=== PATIENT | female | born 1970 | race African-American/Black ===

== ENCOUNTER 2017-02-24 15:51 | Emergency (ER) | payer SELFPAY ==
[2017-02-24 15:54] VITALS: BP 134/87
[2017-02-24] MEDS ORDERED: FAMO-63 PO (16:09)
[2017-02-24] MEDS ORDERED: HYDR25TA PO (16:09)
[2017-02-24] MEDS ORDERED: PRED-220 PO (16:09)
--- NOTE | 2017-02-24 16:10 | PHYS DOC ---
Past Medical History Past Medical History: No Pertinent History Past Surgical History: , Hysterectomy, Other Additional Past Surgical Histo: HERNIA Alcohol Use: None Drug Use: None Adult General Chief Complaint Chief Complaint: SKIN RASH/ABSCESS [facility] HPI Patient is a 47 year old female presents emergency Department today with complaints of a rash around her neck and her right cheek that began approximately 2 days ago. Patient denies any changes to personal hygiene products or laundry detergents. She states she has not tried any new jewelry on. States that she has not had anything like this happen in the past. She denies any facial or airway swelling. She denies any difficulty breathing. Review of Systems Review of Systems Constitutional: Denies fever or chills [] Eyes: Denies change in visual acuity, redness, or eye pain [] HENT: Denies nasal congestion or sore throat [] Respiratory: Denies cough or shortness of breath [] Cardiovascular: No additional information not addressed in HPI [] GI: Denies abdominal pain, nausea, vomiting, bloody stools or diarrhea [] : Denies dysuria or hematuria [] Musculoskeletal: Denies back pain or joint pain [] Integument: Denies rash or skin lesions [] Neurologic: Denies headache, focal weakness or sensory changes [] Endocrine: Denies polyuria or polydipsia [] Allergies Allergies Allergies Coded Allergies Type Severity Reaction Last Updated Verified aspirin Allergy Severe anaphyllaxis 06/07/14 Yes Penicillins Allergy Intermediate 06/07/14 Yes Physical Exam Physical Exam Constitutional: Well developed, well nourished, no acute distress, non-toxic appearance. [] HENT: Normocephalic, atraumatic, bilateral external ears normal, oropharynx moist, no oral exudates, nose normal. There is no angioedema. Eyes: PERRLA, EOMI, conjunctiva normal, no discharge. [] Neck: Normal range of motion, no tenderness, supple, no stridor. [] Cardiovascular:Heart rate regular rhythm, no murmur [] Lungs & Thorax: Bilateral breath sounds clear to auscultation [] Abdomen: Bowel sounds normal, soft, no tenderness, no masses, no pulsatile masses. [] Skin: Patient has a near circumferential, raised rash to the base of her neck with a slight erythematous base. There are no vesicles or pustules. There is no evidence of Kebnerization. There is slight excoriation due to scratching. Patient has a similar small lesion to her right cheek. Back: No tenderness, no CVA tenderness. [] Extremities: No tenderness, no cyanosis, no clubbing, ROM intact, no edema. [] Neurologic: Alert and oriented X 3, normal motor function, normal sensory function, no focal deficits noted. [] Psychologic: Affect normal, judgement normal, mood normal. [] EKG EKG [] Radiology/Procedures Radiology/Procedures [] Course & Med Decision Making Course & Med Decision Making Pertinent Labs and Imaging studies reviewed. (See chart for details) [] Dragon Disclaimer Dragon Disclaimer This electronic medical record was generated, in whole or in part, using a voice recognition dictation system. Departure Departure Impression: Primary Impression: Contact dermatitis Disposition: HOME, SELF-CARE Condition: GOOD Referrals: NO PCP (PCP) Patient Instructions: Contact Dermatitis, [id number] Additional Instructions: 1. Review the discharge instructions provided for self-care and reasons to return the emergency department. 2. Take the medications as prescribed. 3. Follow-up with a primary care doctor's office within 5-7 days if there is no improvement. Scripts Hydroxyzine Hcl 25 Mg Tablet1 Tab PO TID itching #21 TAB Prov:JESSENIA CALIXTO 02/24/17 Famotidine (Pepcid)20 Mg [id number] Mg PO BID #14 TAB Prov:JESSENIA CALIXTO 02/24/17 Prednisone 10 Mg [id number] Mg PO UD PREDNISONE TAPER #39 TAB Ref 0 Take 3 tablets by mouth twice a day for 3 days, then take 2 tablets by mouth twice a day for 3 days, then take 1 tablet by mouth twice a day for 3 days, then take 1 tablet by mouth daily x 3 days, then stop. Prov:JESSENIA CALIXTO 02/24/17 JESSENIA CALIXTO Feb 24, 2017 16:10
== END 2017-02-24 16:16 | disposition home or self-care (01) ==
LOC: ER 15:51
DX: L25.9 Unspecified contact dermatitis, unspecified cause (principal); Z88.0 Allergy status to penicillin; Z88.6 Allergy status to analgesic agent
CPT/HCPCS: 99283

== ENCOUNTER 2017-05-25 17:01 | Emergency (ER) | payer SELFPAY ==
[~2017-05-25] VITALS: Ht 167.6 cm; Wt 108.9 kg
[~2017-05-25 17:01] MED LIST: FAMO-63 PO; HYDR25TA PO; PRED-220 PO
[2017-05-25 17:15] VITALS: BP 134/87
--- NOTE | 2017-05-25 17:25 | PHYS DOC ---
Past Medical History Past Medical History: No Pertinent History Past Surgical History: , Hysterectomy, Other Additional Past Surgical Histo: HERNIA Alcohol Use: None Drug Use: None Adult General Chief Complaint Chief Complaint: EARACHE/EAR PAIN [facility] HPI Patient is a 47 year old female presents emergency department stating that she' s had a 4 day history of right ear pain. She states that she had just recently taken a flight when she went to get off the plane she had a pop in the right ear. She states she's had pain since that time. She denies any drainage or discharge coming from the ear. She denies any fever, chills or any nausea or vomiting or any nasal congestion. Patient states that she has not taken anything for pain or discomfort. Review of Systems Review of Systems Constitutional: Denies fever or chills [] Eyes: Denies change in visual acuity, redness, or eye pain [] HENT: Denies nasal congestion or sore throat. Right ear pain Respiratory: Denies cough or shortness of breath [] Cardiovascular: No additional information not addressed in HPI [] GI: Denies abdominal pain, nausea, vomiting, bloody stools or diarrhea [] : Denies dysuria or hematuria [] Musculoskeletal: Denies back pain or joint pain [] Integument: Denies rash or skin lesions [] Neurologic: Denies headache, focal weakness or sensory changes [] Endocrine: Denies polyuria or polydipsia [] Allergies Allergies Allergies Coded Allergies Type Severity Reaction Last Updated Verified aspirin Allergy Severe anaphyllaxis 06/07/14 Yes Penicillins Allergy Intermediate 06/07/14 Yes Physical Exam Physical Exam Constitutional: Well developed, well nourished, no acute distress, non-toxic appearance. [] HENT: Normocephalic, atraumatic, bilateral external ears normal, oropharynx moist, no oral exudates, nose normal. Bilateral tympanic membranes appear to be no treatment done with no erythematous no drainage or discharge noted no dental pain or dental abscess noted. Eyes: PERRLA, EOMI, conjunctiva normal, no discharge. [] Neck: Normal range of motion, no tenderness, supple, no stridor. [] Cardiovascular:Heart rate regular rhythm, no murmur [] Lungs & Thorax: Bilateral breath sounds clear to auscultation [] Skin: Warm, dry, no erythema, no rash. [] Back: No tenderness Extremities: No tenderness, no cyanosis, no clubbing, ROM intact, no edema. [] Neurologic: Alert and oriented X 3, normal motor function, normal sensory function, no focal deficits noted. [] Psychologic: Affect normal, judgement normal, mood normal. [] EKG EKG [] Radiology/Procedures Radiology/Procedures [] Course & Med Decision Making Course & Med Decision Making Pertinent Labs and Imaging studies reviewed. (See chart for details) Patient was given Tylenol here in the emergency department as she has an allergy to aspirin. Patient will be discharged home with recommendations for Tylenol for pain and discomfort. Warm moist packs to the right ear recommended following up with ENT if she continues to pain and discomfort. Signs symptoms to return back to emergency department has been provided. [] Dragon Disclaimer Dragon Disclaimer This electronic medical record was generated, in whole or in part, using a voice recognition dictation system. Departure Departure Impression: Primary Impression: Otalgia, right ear Condition: STABLE Referrals: NO PCP (PCP) Patient Instructions: Otalgia-Brief Additional Instructions: Activity a tolerated Tylenol for pain and discomfort Warm moist pack to the right ear Followup with ENT if pain continues Return to emergency department as needed for signs and symptoms that become worse. MATTHEW CHURCH [employer] REPAIRER May 25, 2017 17:24
[2017-05-25] MEDS ORDERED: IBUPROFEN 800 MG TABLET. PO ONE (17:30)
[2017-05-25] MEDS ORDERED: ACETAMINOPHEN 325 MG TABLET. PO ONE (17:30)
== END 2017-05-25 17:32 | disposition home or self-care (01) ==
LOC: ER 17:04
DX: H92.01 Otalgia, right ear (principal); Z88.0 Allergy status to penicillin; Z88.6 Allergy status to analgesic agent
CPT/HCPCS: 99282

== ENCOUNTER 2017-08-04 09:07 | Emergency (ER) | payer SELFPAY ==
[~2017-08-04] VITALS: Ht 166.4 cm; Wt 108.9 kg
[2017-08-04 09:38] VITALS: BP 135/87
--- NOTE | 2017-08-04 10:51 | PHYS DOC ---
Past Medical History Past Medical History: No Pertinent History Past Surgical History: , Hysterectomy, Other Additional Past Surgical Histo: HERNIA Additional Information: 5-6 cigarettes daily Alcohol Use: None Drug Use: None Adult General Chief Complaint Chief Complaint: EARACHE/EAR PAIN [facility] HPI Patient is a 47 year old female presents to the emergency department stating that she's been having one and a half week long history of right ear pain and discomfort. She states that it is been sometimes sharp in nature. She states that within the last 3 days the pain is become severely worse when she is trying to sleep she states that she cannot get herself position chronically. She denies any upper respiratory congestion. She denies any drainage from her ear. She states that she does have a history of chills but denies fevers. Patient denies any shortness of air difficulty breathing. Patient states that she has not taken anything for the discomfort at home. Review of Systems Review of Systems Constitutional: Denies fever or chills [] Eyes: Denies change in visual acuity, redness, or eye pain [] HENT: Denies nasal congestion or sore throat. Complaint of right ear pain and discomfort. Respiratory: Denies cough or shortness of breath [] Cardiovascular: No additional information not addressed in HPI [] GI: Denies abdominal pain, nausea, vomiting, bloody stools or diarrhea [] : Denies dysuria or hematuria [] Musculoskeletal: Denies back pain or joint pain [] Integument: Denies rash or skin lesions [] Neurologic: Denies headache, focal weakness or sensory changes [] Endocrine: Denies polyuria or polydipsia [] Allergies Allergies Allergies Coded Allergies Type Severity Reaction Last Updated Verified aspirin Allergy Severe anaphyllaxis 06/07/14 Yes Penicillins Allergy Intermediate 06/07/14 Yes Physical Exam Physical Exam Constitutional: Well developed, well nourished, no acute distress, non-toxic appearance. [] HENT: Normocephalic, atraumatic, bilateral external ears normal, oropharynx moist, no oral exudates, nose normal. Bilateral tympanic membranes appear to be normal. Patient does have tenderness noted along the eustachian tube area. No redness no warmth noted. Throat appears to be without erythematous or exudate noted. Eyes: PERRLA, EOMI, conjunctiva normal, no discharge. [] Neck: Normal range of motion, no tenderness, supple, no stridor. [] Cardiovascular:Heart rate regular rhythm, no murmur [] Lungs & Thorax: Bilateral breath sounds clear to auscultation [] Skin: Warm, dry, no erythema, no rash. [] Back: No tenderness Extremities: No tenderness, no cyanosis, no clubbing, ROM intact, no edema. [] Neurologic: Alert and oriented X 3, normal motor function, normal sensory function, no focal deficits noted. [] Psychologic: Affect normal, judgement normal, mood normal. [] Current Patient Data Vital Signs Vital Signs Date Time Temp Pulse Resp B/P (MAP) Pulse Ox O2 Delivery O2 Flow Rate FiO2 08/04/17 09:38 98.2 84 16 98 Room Air 98.2 EKG EKG [] Radiology/Procedures Radiology/Procedures [] Course & Med Decision Making Course & Med Decision Making Pertinent Labs and Imaging studies reviewed. (See chart for details) Patient will be discharged home with recommendations to use Afrin 1 spray to bilateral naris twice a day. Recommended her to only use this for the next 3 days. Recommended patient to follow up with primary care physician in the next week. Encourage plenty of fluids Tylenol or ibuprofen for fever chills or generalized body aches and discomfort. Signs and symptoms to return back to emergency department as been provided. Patient agrees with discharge instructions, treatment regimens and follow-up recommendations. All questions and concerns been answered at patient's bedside. [] Dragon Disclaimer Dragon Disclaimer This electronic medical record was generated, in whole or in part, using a voice recognition dictation system. Departure Departure Impression: Primary Impression: Eustachian tube dysfunction Disposition: 01 HOME, SELF-CARE Condition: STABLE Referrals: NO PCP (PCP) Patient Instructions: Otalgia-Brief Additional Instructions: Activity as tolerated. Afrin 1 spray to bilateral naris twice day 3 days only do not use a longer than 3 days. Tylenol or ibuprofen for fever chills or generalized body aches and discomfort. You may also use some decongestants [id number]. Drink plenty of fluids such as water Gatorade or propel. Follow-up to primary care physician in the next week. Return back to emergency prior signs and symptoms of become worse. Problem Qualifiers Primary Impression: Eustachian tube dysfunction Laterality: right Qualified Codes: H69.81 - Other specified disorders of eustachian tube, right ear MATTHEW CHURCH [employer] SHEET ANALYST Aug 04, 2017 10:51
== END 2017-08-04 11:01 | disposition home or self-care (01) ==
LOC: ER 09:07
DX: H69.81 Other specified disorders of Eustachian tube, right ear (principal)
CPT/HCPCS: 99281